=== PATIENT | female | born 1995 | race Caucasian/White ===

== ENCOUNTER 2017-05-27 01:59 | Emergency (ER) | payer BC ==
[~2017-05-27] VITALS: Ht 162.6 cm; Wt 81.3 kg
[2017-05-27 02:03] VITALS: Ht 162.6 cm; Wt 81.3 kg
--- NOTE | 2017-05-27 02:27 | EMERGENCY ROOM VISIT NOTE ---
History Report prepared by Kathia: Deandra Mccall Under the Supervision of: Dr. Rakel Almaraz D.O. First contact with patient: 02:16 Chief Complaint: FEVER Stated Complaint: COUGHING,FEVER,ACHES History of Present Illness The patient is a 22 year old female who presents to the Emergency Room with complaints of flu-like symptoms beginning on Friday, two days ago. She notes body aches, a sorethroat, and a cough. She states her sorethroat is only present in the morning. She denies any abdominal pain. The patient took DayQuil yesterday which relieved some of her symptoms. The patient notes waking up feeling "very hot" a couple hours ago. She did not check her temperature but she believes she had a fever. She denies any chance of . She denies any known sick contact. The patient's last menstrual period was 3 weeks ago. Source of History: patient Onset: two days ago Position: other (generalized) Quality: other (flu like symptoms) Modifying Factors (Relieving): other (Dayquil) Associated Symptoms: + fevers, + sorethroat, + cough, No abdominal pain Note: Pt notes body aches. Review of Systems See HPI for pertinent positives & negatives. A total of 10 systems reviewed and were otherwise negative. Past Medical & Surgical Surgical Problems: (1) H/O wisdom tooth extraction Family History Cancer Social History Smoking Status: Never Smoker Smokeless Tobacco Use: No Alcohol Use: none Housing Status: lives with roommate Occupation Status: [employer] Current/Historical Medications No Active Prescriptions or Reported Meds Allergies Coded Allergies: No Known Allergies (Unverified , 05/27/17) Physical Exam Vital Signs Date Time Temp Pulse Resp B/P (MAP) Pulse Ox O2 Delivery O2 Flow Rate FiO2 05/27/17 04:49 37.1 88 20 124/72 99 05/27/17 03:03 128/85 05/27/17 02:59 123 20 98 Room Air 05/27/17 02:47 132/86 05/27/17 02:03 39.3 144 18 131/85 97 Room Air Physical Exam HEENT: Head - normocephalic and atraumatic Pupils are equal, round, and reactive to light. Extraocular eye muscles are intact, and sclera are anicteric. Nose - moist nasal mucosa without discharge. Mouth - moist buccal mucosa. Oropharynx is nonerythematous and there is no tonsillar exudate or edema noted. Ear: Tms clear bilaterally Neck: Supple; no JVD, nuchal rigidity, cervical lymphadenopathy. Heart: Tachycardic. There is a normal S1 and S2 with no murmurs, clicks, or gallops appreciated. Lungs: Clear to auscultation bilaterally with no wheezes, rales, or rhonchi. Abdomen: Soft, completely nontender, nondistended, with good bowel sounds. There are no palpable pulsatile masses or hepatosplenomegaly. There is no guarding, rigidity, or rebound noted. Extremities: No evidence of cyanosis, clubbing, or edema. There are easily palpable peripheral pulses. Skin: Diaphoretic with good turgor and no rashes. Medical Decision & Procedures ER Provider Diagnostic Interpretation: Radiology results as stated below per my review: Chest X-Ray: no acute pulmonary infiltrate or pleural effusions. Laboratory Results 05/27/17 02:51 Red Blood Count 4.57, Mean Corpuscular Volume 89.1, Mean Corpuscular Hemoglobin 30.6, Mean Corpuscular Hemoglobin Concent 34.4, Mean Platelet Volume 9.3, Neutrophils (%) (Auto) 73.7, Lymphocytes (%) (Auto) 12.3, Monocytes (%) (Auto) 13.4, Eosinophils (%) (Auto) 0.2, Basophils (%) (Auto) 0.4, Neutrophils # (Auto ) 3.41, Lymphocytes # (Auto) 0.57, Monocytes # (Auto) 0.62, Eosinophils # (Auto ) 0.01, Basophils # (Auto) 0.02 05/27/17 02:51 Test 05/27/17 02:51 05/27/17 03:45 White Blood Count 4.63 K/uL (4.8-10.8) Red Blood Count 4.57 M/uL (4.2-5.4) Hemoglobin 14.0 g/dL (12.0-16.0) Hematocrit 40.7 % (37-47) Mean Corpuscular Volume 89.1 fL (80-100) Mean Corpuscular Hemoglobin 30.6 pg (25-34) Mean Corpuscular Hemoglobin Concent 34.4 g/dl (32-36) Platelet Count 205 K/uL (130-400) Mean Platelet Volume 9.3 fL (7.4-10.4) Neutrophils (%) (Auto) 73.7 % Lymphocytes (%) (Auto) 12.3 % Monocytes (%) (Auto) 13.4 % Eosinophils (%) (Auto) 0.2 % Basophils (%) (Auto) 0.4 % Neutrophils # (Auto) 3.41 K/uL (1.4-6.5) Lymphocytes # (Auto) 0.57 K/uL (1.2-3.4) Monocytes # (Auto) 0.62 K/uL (0.11-0.59) Eosinophils # (Auto) 0.01 K/uL (0-0.5) Basophils # (Auto) 0.02 K/uL (0-0.2) RDW Standard Deviation 41.4 fL (36.4-46.3) RDW Coefficient of Variation 12.9 % (11.5-14.5) Immature Granulocyte % (Auto) 0.0 % Immature Granulocyte # (Auto) 0.00 K/uL (0.00-0.02) Anion Gap 7.0 mmol/L (3-11) Est Creatinine Clear Calc Drug Dose 111.6 ml/min Estimated GFR () 117.7 Estimated GFR (Non- 101.5 BUN/Creatinine Ratio 10.3 (10-20) Calcium Level 8.7 mg/dl (8.5-10.1) Influenza Type A Antigen POS for Influ A (NEG) Influenza Type B Antigen Neg for Influ B (NEG) Urine Color DK YELLOW Urine Appearance CLOUDY (CLEAR) Urine pH 5.0 (4.5-7.5) Urine Specific [place] 1.037 (1.000-1.030) Urine Protein 1+ (NEG) Urine Glucose (UA) NEG (NEG) Urine Ketones TRACE (NEG) Urine Occult Blood NEG (NEG) Urine Nitrite NEG (NEG) Urine Bilirubin NEG (NEG) Urine Urobilinogen NEG (NEG) Urine Leukocyte Esterase NEG (NEG) Urine WBC (Auto) 1-5 /hpf (0-5) Urine RBC (Auto) 0-4 /hpf (0-4) Urine Hyaline Casts (Auto) 0 /lpf (0-5) Urine Epithelial Cells (Auto) >30 /lpf (0-5) Urine Bacteria (Auto) 1+ (NEG) Urine Pathogenic Casts /lpf (0) Urine Mucus PRESENT (NONE PRSENT) Laboratory results per my review. Medications Administered Medications (Trade) Dose Ordered Sig/Stephanie Route Start Time Stop Time Status Last Admin Dose Admin Sodium Chloride 1,000 ml @ 999 mls/hr Q1H1M STAT IV 05/27/17 02:31 05/27/17 03:31 DC 05/27/17 02:49 999 MLS/HR Ketorolac Tromethamine (Toradol Inj) 30 mg NOW STAT IV 05/27/17 02:31 05/27/17 02:34 DC 05/27/17 02:50 30 MG Procedure Toradol IV, NSS IV. ED Course 0218: Past medical records reviewed. The patient was evaluated in room B12B. A complete history and physical exam was performed. Her nose was swabbed for influenza. An IV lock was initiated and labs were drawn as above. 0231: Ordered Toradol Inj 30 mg IV, Sodium Chloride 1000 ml @ 999 mls/hr IV. 0351: I updated the patient on her test results. She had chest x-ray as described above. 0430: Upon reevaluation, the patient is resting comfortably. I discussed findings and results with her. She verbalized agreement of the treatment plan. The patient was discharged home. Medical Decision The patient is a 22 year old female who presents to the ED with flu-like symptoms. Differential diagnosis includes influenza, viral illness, pneumonia, dehydration. Lab results show: white count 4.6, stable H & H, glucose 150, normal renal function, influenza A positive, urine pending. Fever, cough and sore throat. Influenza testing was positive. The patient has been having symptoms for approximately 48 hours. We talked about the pros and cons of Tamiflu. The patient decided against taking it as it would most likely be unavailable. I explained to the patient that her blood sugar was high and that she would require fasting blood sugar test. She will do this through [employer] services. I've encouraged patient to rest over the next couple of days. She can return here to the emergency department for worsening symptoms. Medication Reconcilliation Current Medication List: was personally reviewed by me Blood Pressure Screening Patient's blood pressure: Normal blood pressure Impression Primary Impression: Influenza A Scribe Attestation The scribe's documentation has been prepared under my direction and personally reviewed by me in its entirety. I confirm that the note above accurately reflects all work, treatment, procedures, and medical decision making performed by me. Departure Information Dispostion Home / Self-Care Prescriptions No Active Prescriptions or Reported Meds Referrals No Doctor, Assigned (PCP) Forms HOME CARE DOCUMENTATION FORM, IMPORTANT VISIT INFORMATION Patient Instructions ED Flu, My [facility] Additional Instructions Rest. Take plenty of clear liquids Take motrin- 800mg every 6 hours with food for pain Avoid public until fever resolves.
[2017-05-27] MEDS ORDERED: KETOROLAC TROMETHAMINE 30 MG/ML VIAL IV STA (02:31)
[2017-05-27] MEDS ORDERED: SODIUM CHLORIDE 0.9% 1000ML 1,000 ML IV STA (02:31)
[2017-05-27 03:05] LABS: BASO % 0.4 %; BASO ABS # 0.02 K/uL (0-0.2); EOS % 0.2 %; EOS ABS # 0.01 K/uL (0-0.5); HEMATOCRIT 40.7 % (37-47); LYMPH % 12.3 %; LYMPH ABS # 0.57 K/uL (1.2-3.4); MEAN CELL VOLUME 89.1 fL (80-100); MEAN CORPUSCULAR HEMOGLOBIN 30.6 pg (25-34); MEAN CORPUSCULAR HGB CONC 34.4 g/dl (32-36); MEAN PLATELET VOLUME 9.3 fL (7.4-10.4); MONO % 13.4 %; MONO ABS # 0.62 K/uL (0.11-0.59); NEUT % 73.7 %; NEUT ABS # 3.41 K/uL (1.4-6.5); PLATELET COUNT 205 K/uL (130-400); RED CELL DISTRIBUTION WIDTH CV 12.9 % (11.5-14.5); RED CELL DISTRIBUTION WIDTH SD 41.4 fL (36.4-46.3); WHITE BLOOD COUNT 4.63 K/uL (4.8-10.8)
[2017-05-27 03:27] LABS: CALCIUM 8.7 mg/dl (8.5-10.1); CREATININE 0.83 mg/dl (0.60-1.20); POTASSIUM 3.5 mmol/L (3.5-5.1)
[2017-05-27 03:34] LABS: INFLUENZA B ANTIGEN Neg for Influ B (NEG)
[2017-05-27 04:49] VITALS: BP 124/72; PULSE 88; TEMP 37.1; O2SAT 99
--- NOTE | 2017-05-27 07:57 | DIAGNOSTIC IMAGING REPORT ---
CHEST 2 VIEWS ROUTINE HISTORY: cough/fever COMPARISON: None. FINDINGS: The lungs are clear. Cardiac silhouette is normal in size. No pleural effusions. No pneumothorax. IMPRESSION: No acute process. Electronically signed by: Braulio Owens M.D. 05/27/2017 7:55 AM Dictated Date/Time: 05/27/2017 7:54 AM
== END 2017-05-27 04:50 | disposition home or self-care (01) ==
LOC: C.EDB 02:01
DX: J09.X2 Influenza due to identified novel influenza A virus with other respiratory manifestations (principal); Z80.9 Family history of malignant neoplasm, unspecified